=== PATIENT | male | born 1970 | race Caucasian/White ===

== ENCOUNTER → 2016-07-27 | Day surgery (SDC) | payer MEDICARE, OTHER ==
[~2016-07-27] MED LIST: BUPROPION XL300 MG PO; EFFEXOR PO; IMITREX; OXYCONTIN 20MG20 M1 PO
--- NOTE | ~2016-07-27 | OR ---
Unit #: [id number] #: [id number] Patient: KATERIN WHEELER [id number] [address] [address] [id number] MR#: [id number] NAME: KATERIN WHEELER ROOM: Date of Procedure: 07/27/2016 Admission Date: 07/27/2016 Surgeon: Humble Avila M.D. : 1970 Attending Physician: Humble Avila M.D. Primary Care Physician: Primary Care Physician No OPERATIVE REPORT PREOPERATIVE DIAGNOSES 1. Malfunction of intrathecal pain pump. 2. Chronic intractable pain syndrome. POSTOPERATIVE DIAGNOSES 1. Malfunction of intrathecal pain pump. 2. Chronic intractable pain syndrome. PROCEDURES PERFORMED Revision and replacement of implanted SynchroMed Med[employer]onic pump, physician filling of pump. SURGICAL INDICATION AND RATIONALE Mr. Katerin Wheeler is a pleasant 46-year-old gentleman who was referred to me by Dr. Betito Aeljandra for evaluation and treatment of a malfunctioned SynchroMed intrathecal pump. This pump apparently has reached its battery life and has been referred by his managing pain doctor to have this device replaced with a new battery. The patient has undergone an extensive education process regarding the risks, benefits, and alternatives available including the consent degree and all the patient's concerns regarding this was answered to his satisfaction. I used a teach-back method to make sure that the patient understood my explanations. The patient also had an in-detailed discussion with Gina Sanchez, who is a [employer] representative regarding the consent degree and again his questions were answered to his satisfaction. The patient also as I mentioned has undergone a cardiac evaluation and this did not show any contraindications to moving forward with this procedure. DESCRIPTION OF PROCEDURE After obtaining full informed consent and after discussion with the patient of possible complications including infection, bleeding, paralysis, spinal headaches, , and other perioperative complications were discussed with the patient and consent was obtained in front of preoperative nurse, Rocio. The patient was then taken back to the operating room, where a time-out was done in accordance with joint commission guidelines where the patient's identity, procedure, and site of procedure were verified. The patient was then put under general anesthesia by the anesthesiologist and was then positioned in the prone position. The patient was prepped and draped in the usual fashion. Then, after the skin target sites were anesthetized, I made an incision over the previous incision where the pain pump was located. Without much difficulty, I was able to get the old pump out of the pocket and the Unit #: [id number] #: [id number] Patient: KATERIN WHEELER pocket was then copiously irrigated with irrigant. I then removed the pump from its catheter and then replaced it with a new pump, which is a Medtronic SynchroMed 20 mL pump which I had filled with Dilaudid at a concentration of 20 mg/mL with clonidine at 200 mcg/mL. A total of 20 mL were placed into the pump. Once the pump was connected, I aspirated from the side-port using a 24-gauge Moody needle and was able to get CSF. This represents that the entire system is intact. I also confirmed that the catheter was in place intrathecally. The pump was then placed back into its pocket, but prior to doing that, I copiously irrigated it with irrigant and placed a Tyrx pouch, which is an antibiotic impregnated pouch at the base of the pocket. The pump was then placed in and secured to the underlying tissue using 3-0 Prolene sutures via the 4 anchors. The incision was then inspected and closed using 3-0 interrupted Vicryl sutures in 2 layers and the skin was approximated with solitario. The patient was then brought back to the recovery room for neurological monitoring. PLAN OF CARE The patient's pump was then initiated at a dose of 2 mg a day with the ability to receive a PTM (patient physical therapy resident) at 0.05 mg and he was allowed to have 3 activations in a 24-hour period. I have told the patient that he needs to follow up with Dr. Alejandra regarding management and increasing his pump. I did reduce the patient's concentration and dose for fear that the patient was not getting this amount of drug due to the failing of the SynchroMed pain pump. I have informed Dr. Alejandra both verbally and through the [employer] representative of the reduction in dose and that he may require dose escalation very soon. I have also told the patient to return to my office in 7 days to have the solitario removed. The patient acknowledges understanding of all the risks, benefits, and alternatives available and would like to proceed. Dictated by... Kulwant Lopez/rain TD: 08/07/2016 03:30 JOB #: [id number] OPERATIVE REPORT Page 1 of 1 X Humble Avila MD PROCEDURE OPERATIVE NOTE
== END | disposition home or self-care (01) ==
LOC: CSUR 07:37
DX: Z45.1 Encounter for adjustment and management of infusion pump (principal); G89.4 Chronic pain syndrome; G43.909 Migraine, unspecified, not intractable, without status migrainosus; F41.9 Anxiety disorder, unspecified; F32.9 Major depressive disorder, single episode, unspecified; Z98.890 Other specified postprocedural states; Z87.891 Personal history of nicotine dependence; Z79.899 Other long term (current) drug therapy; Z79.891 Long term (current) use of opiate analgesic
CPT/HCPCS: C1772; J0690; J1170